=== PATIENT | male | born 1960 | race African-American/Black ===

== ENCOUNTER 2016-09-16 23:30 | Emergency (ER) | payer OTHER ==
[2016-09-16 23:50] VITALS: BP 133/91
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
[2016-09-17] MEDS ORDERED: IBUPROFEN 600 MG TABLET PO ONE (02:24)
== END 2016-09-17 03:13 | disposition home or self-care (01) ==
LOC: EDBD → ER 23:30
DX: S99.922A Unspecified injury of left foot, initial encounter (principal); V03.90XA Pedestrian on foot injured in collision with car, pick-up truck or van, unspecified whether traffic or nontraffic accident, initial encounter; Y93.H3 Activity, building and construction; Y92.410 Unspecified street and highway as the place of occurrence of the external cause; Y99.0 Civilian activity done for income or pay
CPT/HCPCS: 99284

== ENCOUNTER 2019-11-10 02:30 | Emergency (ER) | payer SELFPAY ==
--- NOTE | 2019-11-10 02:35 | ER Document Report ---
ED General - General Stated Complaint: POSSIBLE OVERDOSE Time Seen by Provider: 11/10/19 02:33 Notes: 59-year-old male presents with agitation. He took a friend's Lasix 80 mg because his left leg hurt. When they got there to pick him up after he called 911 he was very agitated, irritated and mean. They describe him is not altered just did not want come to the hospital and was swinging at multiple providers. Rather than leave him at home they elected to give him multiple medications for sedation. He is now snoring but arousable. They said he might have complaints of chest pain sometime during his no other history is available. TRAVEL OUTSIDE OF THE [place] IN LAST 30 DAYS: No Past Medical History - Social History Smoking Status: Unknown if Ever Smoked Family History: Reviewed & Not Pertinent Renal/ Medical History: Denies: Hx Peritoneal Dialysis Review of Systems - Review of Systems Notes: REVIEW OF SYSTEMS Unavailable altered mental status PHYSICAL EXAMINATION General: No acute distress, well-nourished Head: Atraumatic, normocephalic ENT: Mouth normal, oropharynx moist, no exudates or tonsillar enlargement Eyes: Conjunctiva normal, pupils equal, lids normal Neck: No JVD, supple, no guarding CVS: Normal rate, regular rhythm, no murmurs Resp: No resp distress, equal and normal breath sounds bilaterally GI: Nondistended, soft, no tenderness to palpation, no rebound or guarding Ext: No deformities, no edema, normal range of motion in upper and lower ext Back: No CVA or midline TTP Skin: No rash, warm Lymphatic: No lymphadeopathy noted Neuro: Sleepy but arouses to voice. Answer simple questions and was extremities. Face symmetric. 15. Physical Exam - Vital signs Vitals: Resp Pulse Ox 25 H 88 L 11/10/19 02:34 11/10/19 02:34 Course - Re-evaluation Re-evalutation: 11/10/19 02:46 Patient accidentally took Lasix, has not urinated, he does have mild leg edema but no signs of infection or DVT He mention chest pain at some point but is now incapacitated because of medication administered by EMS We will check a troponin EKG and labs and reassess him but hopefully he will met abolize. He is already been given 1.5 L of fluid. I think this will sufficiently rehydrate him in case he diuresis. 11/10/19 04:49 Labs essentially normal. Reassessed at 4:40 AM. Still quite somnolent secondary to meds. We will continue to observe with hopes that he will wake up and be discharged. 11/10/19 05:37 Reassessed at 5:30 AM. Has urinated 1 L, that said he received 1.5 L here. He is now arousable and wants to go home. We discussed taking other peoples prescriptions. His leg pain is actually not bad. He will be discharged. I have discussed with the patient there likely diagnosis, aftercare plan, follow- up plans and my usual and customary return precautions. They verbalized understanding of this. - Vital Signs Vital signs: Temp Pulse Resp BP Pulse Ox 97.5 F 20 95 11/10/19 02:38 11/10/19 03:00 11/10/19 03:00 - Laboratory Result Diagrams: 11/10/19 02:50 Laboratory results interpreted by me: 11/10/19 02:50 Sodium 136.7 L Chloride 97 L BUN 25 H Glucose 148 H - EKG Interpretation by Me EKG shows normal: Sinus rhythm Rate: Normal Rhythm: NSR - No ST or T wave changes Discharge - Discharge Clinical Impression: Leg pain, left Condition: Good Disposition: HOME, SELF-CARE Additional Instructions: Please do not take medications that are not prescribed for you. Please follow- up with your regular doctor regarding your leg.
[2019-11-10 03:44] LABS: ANION GAP 12 (5-19); BLOOD UREA NITROGEN 25 mg/dL (7-20); CALCIUM 9.9 mg/dL (8.4-10.2); CARBON DIOXIDE 28 mmol/L (22-30); CHLORIDE 97 mmol/L (98-107); GLUCOSE 148 mg/dL (75-110); POTASSIUM 3.8 mmol/L (3.6-5.0)
--- NOTE | 2019-11-10 06:59 | EKG REPORT ---
SEVERITY:- ABNORMAL ECG - SINUS RHYTHM NONSPECIFIC T ABNORMALITIES, LATERAL LEADS BORDERLINE PROLONGED QT INTERVAL : Confirmed by: Stanley Hutton MD 10-Nov-2019 06:58:47
== END 2019-11-10 06:55 | disposition home or self-care (01) ==
LOC: ER 02:30
DX: M79.605 Pain in left leg (principal)
CPT/HCPCS: 36415; 80048; 84484; 93005; 93010; 99284